=== PATIENT | male | born 1965 ===

== ENCOUNTER 2017-04-06 09:13 | Outpatient (CLI) | payer OTHER ==
--- NOTE | 2017-04-06 12:12 | Cat Scan Report ---
CT abdomen without contrast: History: Left upper quadrant and epigastric pain. Transverse images were obtained from the lung staff and pelvis with coronal and sagittal reformatted 2-D images. Oral contrast administered. The visualized lung bases are unremarkable. There is a ring of calcification 15 mm in diameter in the lower lateral right hepatic lobe with slightly decreased central attenuation compared to the adjacent liver. The abdominal organs are not otherwise remarkable. The retroperitoneal organs also appear generally unremarkable except for a couple of tiny non-obstructing calcifications in the central portion of the left kidney and mild perinephric stranding bilaterally. The abdominal aorta is unremarkable in size and contour and no periaortic or mesenteric adenopathy identified. The partially opacified small bowel and unopacified colon are unremarkable. The appendix is visualized. There is a fat containing midline separation of the abdominal wall just above the umbilicus. It has a length of approximately 4.9 cm and a variable separation with maximum separation of 5.1 cm. There are degenerative bone and discogenic changes involving the L4-S1 levels. Impression: 1. Large abdominal hernia. 2. Nonobstructing tiny left renal calculi. 3. Nonspecific rim of calcium in the right lobe of the liver. This may reflect prior trauma or infection.
--- NOTE | 2017-04-06 12:14 | XRay Report ---
Thoracic spine: Radiculitis. AP and lateral views demonstrate partially bridging spurs along the right lateral and anterior lower thoracic spine. The vertebral height, alignment, and interspaces appear generally preserved. No paraspinous widening. The bones appear generally well mineralized. Of incidental note is virtual collapse of the C5-6 interspace and irregularity of the articular margins of C6-7 with anterior spondylosis. There is a reversal of normal cervical curvature. Impressions: 1. Mild degenerative thoracic spine changes. 2. Significant changes of the cervical spine as detailed above.
== END 2017-04-06 09:14 | disposition home or self-care (01) ==
LOC: SPVIMAG 09:13
PROVIDERS: ATTEND Family Medicine
DX: N20.0 Calculus of kidney (principal); K46.9 Unspecified abdominal hernia without obstruction or gangrene; K76.89 Other specified diseases of liver; N28.89 Other specified disorders of kidney and ureter; M48.52XA Collapsed vertebra, not elsewhere classified, cervical region, initial encounter for fracture; M47.812 Spondylosis without myelopathy or radiculopathy, cervical region; M47.814 Spondylosis without myelopathy or radiculopathy, thoracic region
CPT/HCPCS: 72070; 74150